=== PATIENT | female | born 1940 ===

== ENCOUNTER 2019-01-21 11:16 | Emergency (ER) | payer OTHER ==
[~2019-01-21] VITALS: Ht 157.5 cm; Wt 87.5 kg
[2019-01-21] MEDS ORDERED: TOPROL XL50 M1 PO (11:26)
[2019-01-21] MEDS ORDERED: PACERONE400 MG PO (11:26)
[2019-01-21] MEDS ORDERED: LOSARTAN POTAS100 MG PO (11:26)
[2019-01-21] MEDS ORDERED: COUMADIN5 MG PO (11:26)
[2019-01-21] MEDS ORDERED: MIRAPEX0.5 MG PO (11:26)
[2019-01-21] MEDS ORDERED: FORTAMET500 MG PO (11:26)
== END 2019-01-21 14:59 | disposition home or self-care (01) ==
LOC: ER 11:16
DX: S20.212A Contusion of left front wall of thorax, initial encounter (principal); S20.211A Contusion of right front wall of thorax, initial encounter; S00.83XA Contusion of other part of head, initial encounter; S90.02XA Contusion of left ankle, initial encounter; W01.198A Fall on same level from slipping, tripping and stumbling with subsequent striking against other object, initial encounter; Y93.01 Activity, walking, marching and hiking; Y92.89 Other specified places as the place of occurrence of the external cause; Y99.8 Other external cause status

== ENCOUNTER 2019-09-17 05:15 | Day surgery (SDC) | payer OTHER ==
[~2019-09-17 05:15] MED LIST: AMIODARONE PO; COUMADIN5 MG PO; FORTAMET500 MG PO; LOSARTAN POTAS100 MG PO; MIRAPEX0.5 MG PO; PACERONE400 MG PO; SINGULAIR10 MG; TOPROL XL50 M1 PO
== END 2019-09-17 14:20 | disposition home or self-care (01) ==
LOC: CIR.AMB 05:15
DX: M66.242 Spontaneous rupture of extensor tendons, left hand (principal); M19.042 Primary osteoarthritis, left hand
CPT/HCPCS: 26843; 26449; C1776

== ENCOUNTER → 2020-06-03 | Outpatient (CLI) | payer OTHER | END | disposition home or self-care (01) | LOC: RAD 13:05 | PROVIDERS: ATTEND Orthopaedic Surgery | DX: M25.551 Pain in right hip (principal); M25.552 Pain in left hip ==

== ENCOUNTER 2021-03-08 11:24 | Outpatient (CLI) | payer OTHER | END 2021-03-08 11:25 | disposition home or self-care (01) | LOC: SONOGRAMA 11:24 | PROVIDERS: ATTEND Pathology Anatomic Pathology & Clinical Pathology | DX: E04.1 Nontoxic single thyroid nodule (principal) ==

== ENCOUNTER 2025-10-27 09:13 | Outpatient (CLI) | payer OTHER | END 2025-10-27 09:24 | disposition home or self-care (01) | LOC: RAD 09:13 | PROVIDERS: ATTEND Orthopaedic Surgery | DX: M25.511 Pain in right shoulder (principal) ==